=== PATIENT | male | born 1940 | race Caucasian/White ===

== ENCOUNTER 2016-08-14 11:10 | Emergency (ER) | payer OTHER ==
[~2016-08-14] VITALS: Ht 180.3 cm; Wt 103.0 kg
[2016-08-14 11:15] VITALS: TEMP 36.5; Ht 180.3 cm; Wt 103.0 kg
[2016-08-14] MEDS ORDERED: ASPI325T45 PO (11:56)
[2016-08-14] MEDS ORDERED: HYDR-4717 PO (11:56)
[2016-08-14] MEDS ORDERED: METF-384 PO (11:56)
[2016-08-14] MEDS ORDERED: METO25TA56 PO (11:56)
[2016-08-14 12:14] LABS: HEMATOCRIT 41.1 % (42-52); MEAN CORPUSCULAR HEMOGLOBIN 29.8 pg (25-34); MEAN CORPUSCULAR HGB CONC 33.8 g/dl (32-36); MEAN PLATELET VOLUME 10.2 fL (7.4-10.4); PLATELET COUNT 176 K/uL (130-400); RED BLOOD COUNT 4.67 M/uL (4.7-6.1)
--- NOTE | 2016-08-14 12:16 | DIAGNOSTIC IMAGING REPORT ---
CHEST ONE VIEW PORTABLE CLINICAL HISTORY: Hypertension. COMPARISON STUDY: No previous studies for comparison. FINDINGS: Lung volumes are normal. There is no pneumothorax or pleural effusion. There is no evidence of pulmonary edema. Minimal bibasilar opacities suggest atelectasis. Cardiac size is at the upper limits of normal. IMPRESSION: 1. No acute cardiopulmonary findings. 2. Mild bibasilar opacities suggestive of atelectasis. Electronically signed by: Thom Lazo M.D. 08/14/2016 12:14 PM Dictated Date/Time: 08/14/2016 12:13 PM
[2016-08-14] MEDS ORDERED: HydrALAZINE HCL 20 MG/ML VIAL IV. STA (12:23)
[2016-08-14 12:24] LABS: PARTIAL THROMBOPLASTIN RATIO 1.1; PROTHROMBIN TIME (PATIENT) 10.7 SECONDS (9.0-12.0)
[2016-08-14 12:31] LABS: BUN/CREATININE RATIO 15.9 (10-20); CALCIUM 9.8 mg/dl (8.5-10.1); CREATININE 1.3 mg/dl (0.60-1.40)
[2016-08-14 12:37] LABS: ALB/GLOB RATIO 1.2 (0.9-2); CKMB/CK RATIO 2.6 (0-3.0)
--- NOTE | 2016-08-14 14:59 | EMERGENCY ROOM VISIT NOTE ---
History First contact with patient: 12:11 Chief Complaint: HYPERTENSION Stated Complaint: HIGH BLOOD PRESSURE History of Present Illness The patient is a 76 year old male who presents to the Emergency Department by private vehicle with his family for evaluation of his elevated blood pressure. Patient does report a history of hypertension. He was seen at his primary care provider's office today and regular follow-up. His blood pressure was found to be significantly elevated. He was directed to the emergency department for further evaluation and management. The patient denies any headaches, blurry vision, tinnitus, neck pain, chest pain, palpitations, shortness of breath, or unilateral weakness/numbness. 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 He has had some residual weakness to the LEFT side and walks with walker. This has not worsened acutely. The patient reportedly is to take metoprolol 3 times daily and hydralazine 3 times daily. He reports that he has not been taking the hydralazine 3 times daily as he reports that he felt it was lowering his blood pressure too much. The patient offers no other complaints at this time. There is been no history of TN or coronary artery disease otherwise. Review of Systems A complete 10-point Review of Systems was discussed with the patient, with pertinent positives and negatives listed in the History of Present Illness. All remaining Review of Systems questions can be considered negative unless otherwise specified. Social History Smoking Status: Never Smoker Smokeless Tobacco Use: No Drug Use: none Housing Status: lives with family Occupation Status: retired Current/Historical Medications Scheduled Aspirin (Aspirin), 325 MG PO DAILY Hydralazine Hcl (Apresoline), 50 MG PO TID Metformin Hcl (Glucophage), 1,000 MG PO BID Metoprolol Tartrate (Lopressor) (Lopressor), 25 MG PO BID Allergies Coded Allergies: No Known Allergies (Verified Allergy, Unknown, 11/18/03) Physical Exam Vital Signs Date Time Temp Pulse Resp B/P Pulse Ox O2 Delivery O2 Flow Rate FiO2 08/14/16 15:20 60 14 190/109 98 Room Air 08/14/16 14:56 168/88 08/14/16 13:59 57 16 89 08/14/16 13:58 178/91 08/14/16 13:57 168/138 08/14/16 13:45 173/88 08/14/16 13:44 58 22 94 08/14/16 13:29 55 24 95 08/14/16 13:28 160/91 08/14/16 13:14 60 22 159/84 94 08/14/16 13:09 56 24 94 08/14/16 13:04 56 23 94 08/14/16 12:59 57 21 188/145 94 08/14/16 12:54 59 16 94 08/14/16 12:51 58 18 160/93 96 Room Air 08/14/16 12:49 57 18 93 08/14/16 12:44 59 18 160/93 94 08/14/16 12:39 67 22 92 08/14/16 12:34 59 19 92 08/14/16 12:29 195/105 08/14/16 12:25 58 18 93 08/14/16 12:20 57 15 94 08/14/16 12:15 61 19 94 08/14/16 12:10 59 15 94 08/14/16 12:10 59 08/14/16 12:04 214/96 08/14/16 11:59 94 08/14/16 11:15 36.5 64 18 230/109 94 Room Air Pain Rating (0-10): 0 Physical Exam VITAL SIGNS - Vital signs and nursing notes were reviewed. GENERAL - 76-year-old male appearing his stated age who is in no acute distress. Communicates well with provider and answers questions appropriately. HEAD - NC/AT. EYES - PERRL with EOMI bilaterally. Sclera anicteric. Palpebral conjunctiva pink and moist with no injection noted. EARS - No deformities of external structures noted on gross examination bilaterally. No pain elicited with palpation of the tragus bilaterally. External auditory canals without discharge or otorrhea. Tympanic membranes pearly rodriguez without retraction or bulging. NOSE - Midline and without cyanosis. No epistaxis or purulent drainage noted. Septum midline without deviation or septal hematoma noted. MOUTH/OROPHARYNX - Without perioral cyanosis. Buccal mucosa pink and moist and without leukoplakia. Tongue midline with equal elevation of palate bilaterally. No tonsillar hypertrophy, erythema, or exudates noted. NECK - Neck with FROM. Supple to palpation. LUNGS - Chest wall symmetric without accessory muscle use, intercostals retractions, or central cyanosis. Normal vesicular breath sounds CTA B/L. No wheezes, rales, or rhonchi appreciated. CARDIAC - RRR with S1/S2. No murmur, rubs, or gallops appreciated. No reproducible tenderness to palpation appreciated over the anterior chest wall. ABDOMEN - Abdominal contour obese and without pulsations or visible masses. BS normoactive all four quadrants. No tenderness, palpable masses, hepatosplenomegaly, or ascites noted. EXTREMITIES - No clubbing or peripheral cyanosis. No pretibial edema present. +3 /5 radial and dorsalis pedis pulses palpated throughout. +5/5 strength noted in UE/LE bilaterally. NEUROLOGIC - Cranial nerves II through XII grossly intact. Sensory intact to light touch throughout. PSYCH - A&Ox3 and cooperates fully with examiner. Pt is very pleasant and interacts well with examiner. Medical Decision & Procedures ER Provider Diagnostic Interpretation: Radiological imaging and reports were reviewed by myself. Radiologist's Interpretation as follows: CHEST ONE VIEW PORTABLE CLINICAL HISTORY: Hypertension. COMPARISON STUDY: No previous studies for comparison. FINDINGS: Lung volumes are normal. There is no pneumothorax or pleural effusion. There is no evidence of pulmonary edema. Minimal bibasilar opacities suggest atelectasis. Cardiac size is at the upper limits of normal. IMPRESSION: 1. No acute cardiopulmonary findings. 2. Mild bibasilar opacities suggestive of atelectasis. Laboratory Results 08/14/16 12:05 08/14/16 12:05 Test 08/14/16 12:05 08/14/16 14:09 Red Blood Count 4.67 M/uL (4.7-6.1) Mean Corpuscular Volume 88.0 fL (80-100) Mean Corpuscular Hemoglobin 29.8 pg (25-34) Mean Corpuscular Hemoglobin Concent 33.8 g/dl (32-36) RDW Standard Deviation 45.6 fL (36.4-46.3) RDW Coefficient of Variation 14.3 % (11.5-14.5) Mean Platelet Volume 10.2 fL (7.4-10.4) Prothrombin Time 10.7 SECONDS (9.0-12.0) Prothromb Time International Ratio 1.0 (0.9-1.1) Activated Partial Thromboplast Time 28.5 SECONDS (21.0-31.0) Partial Thromboplastin Ratio 1.1 Anion Gap 16.0 mmol/L (3-11) Est Creatinine Clear Calc Drug Dose 59.0 ml/min Estimated GFR () 61.4 Estimated GFR (Non- 53.0 BUN/Creatinine Ratio 15.9 (10-20) Calcium Level 9.8 mg/dl (8.5-10.1) Total Bilirubin 0.3 mg/dl (0.2-1) Aspartate Amino Transf (AST/SGOT) 16 U/L (15-37) Alanine Aminotransferase (ALT/SGPT) 26 U/L (12-78) Alkaline Phosphatase 50 U/L (45-117) Total Creatine Kinase 152 U/L (39-308) Creatine Kinase MB 3.9 ng/ml (0.5-3.6) Creatine Kinase MB Ratio 2.6 (0-3.0) Troponin I < 0.015 ng/ml (0-0.045) Total Protein 7.8 gm/dl (6.4-8.2) Albumin 4.3 gm/dl (3.4-5.0) Globulin 3.5 gm/dl (2.5-4.0) Albumin/Globulin Ratio 1.2 (0.9-2) Bedside Troponin I 0.000 ng/ml (0-0.045) Medications Administered Medications (Trade) Dose Ordered Sig/Tesfaye Route Start Time Stop Time Status Last Admin Dose Admin Hydralazine HCl (HydrALAZINE INJ) 5 mg NOW STAT IV. 08/14/16 12:23 08/14/16 12:24 DC 08/14/16 12:29 5 MG Procedure Patient was placed on the cardiac nurse specialist and monitored throughout the entire extent of their stay. In addition, the patient's pulse oximetry was monitored throughout the entire stay. Any abnormalities or aberrancies were addressed appropriately. ECG Indication: other (Hypertension) Rate (beats per minute): 60 Rhythm: normal sinus Findings: no acute ischemic change, no ectopy Comparison ECG Date: no prior available ED Course Patient was seen and evaluated by myself. Labs were drawn, saline lock in place. EKG and chest x-rays were obtained. Patient was treated with 5 mg hydralazine intravenously. Laboratory results demonstrate no acute leukocytosis , significant anemia, or bandemia. The patient has no significant electrolyte abnormalities. Cardiac enzymes are not elevated. Troponin is negative. Patient's blood pressure did decrease nicely. He continues to have no symptoms. Laboratory results and imaging studies were reviewed with the patient who acknowledges understanding. Repeat troponin was obtained and found to be negative as well. Case was discussed with my attending physician who independently evaluated the patient and agrees with the diagnostic approach and treatment plan. The patient will contact his primary care provider's office and continue his occasion as previously prescribed. He will return for any changing or worsening symptoms. Patient discharged home afebrile and in good condition. Medical Decision Given the patient's presentation and stated complaints, I did elect to perform the above-mentioned workup. The patient presents today with moderate elevation of his blood pressure. He is completely a symptomatically. His exam is completely unremarkable. He has no focal neurological deficits. He does have some mild speech deficits which are apparently from previous episode. Chest x- ray and chemistries acute findings. Cardiac enzymes are negative 2. He has no significant electrolyte abnormalities. I suspect that the patient has not been utilizing his blood pressure medications as prescribed which is certainly resulted in moderate hypertension. He responded well to IV hydralazine. He does have prescriptions for these medications to be used at home and he was encouraged to do so. I do not feel the patient warrants further admission for evaluation this point as he is completely a symptomatically. His blood pressure did respond nicely and will continue to do so with oral medication at home. The patient will contact his primary care provider as was already planned. He will return for change or worsening symptoms. Patient discharged home in good condition. In the evaluation and treatment of this patient, the following differential diagnoses were considered: TN, ASC, Dysrhythmia, Angina, Mediastinitis, GERD, Esophagitis, PE, Pneumonia, Bronchitis, Costochondritis, Rib Fracture, Zoster. Impression Primary Impression: Accelerated hypertension Departure Information Dispostion Home / Self-Care Condition GOOD Referrals Feliberto Alarcon M.D. (PCP) Patient Instructions Hypertension [place], [facility] Additional Instructions You have been seen in the emergency department today for your high blood pressure. Continue your blood pressure medications as prescribed. Contact your primary care provider today for continued education on blood pressure management. Return for any changing or worsening symptoms.
[2016-08-14 15:20] VITALS: BP 190/109; PULSE 60; O2SAT 98
--- NOTE | 2016-08-14 15:30 | EMERGENCY ROOM VISIT NOTE ---
ED Visit Note First contact with patient: 12:11 Patient evaluated w/ PA for HTN. Pt has been non-compliant with hydralazine. Given IV hydralazine and f/u has been arranged with PCP. Family will help patient log BPs each day and ensure follow-up. They had no further concerns.
== END 2016-08-14 15:22 | disposition home or self-care (01) ==
LOC: C.EDB 11:11 → C.EDD 15:22
DX: I10 Essential (primary) hypertension (principal); I69.354 Hemiplegia and hemiparesis following cerebral infarction affecting left non-dominant side; Z79.899 Other long term (current) drug therapy; Z79.82 Long term (current) use of aspirin; E66.9 Obesity, unspecified; Z68.31 Body mass index [BMI] 31.0-31.9, adult